=== PATIENT | female | born 1985 | race Caucasian/White ===

== ENCOUNTER 2018-10-04 13:06 | Emergency (ER) | payer MEDICAID ==
[~2018-10-04] VITALS: Ht 175.3 cm; Wt 104.3 kg
[2018-10-04 13:06] VITALS: BP_SYST 109
[2018-10-04 14:06] LABS: BASOPHILS % (AUTO) 0.2 % (0.0-2.0); HEMATOCRIT 36.3 % (36-48); HEMOGLOBIN 11.5 g/dL (12.0-16.0); MEAN CORPUSCULAR HEMOGLOBIN 23 pg (27-31); MEAN CORPUSCULAR HGB CONC 32 % (32-36); MEAN CORPUSCULAR VOLUME 71 fL (79.0-98.0); MONOCYTES # (AUTO) 0.3 K/uL (0.0-1.0); MONOCYTES % (AUTO) 2.9 % (1.7-9.3); NEUTROPHILS # (AUTO) 9.1 K/uL (1.8-7.7); NEUTROPHILS % (AUTO) 86.9 % (40.0-70.0); PLATELET COUNT (AUTO) 354 K/uL (130-430); RED BLOOD CELL COUNT(AUTO) 5.11 MIL/uL (4.2-6.2); RED CELL DISTRIBUTION WIDTH 16.1 % (9.0-15.0); WHITE BLOOD COUNT (AUTO) 10.5 K/uL (4.8-10.8)
[2018-10-04 14:19] LABS: CREATININE 0.75 mg/dL (0.55-1.30); POTASSIUM 4.3 mmol/L (3.5-5.1)
[2018-10-04 14:24] LABS: ALBUMIN 3.8 g/dL (3.4-4.8); TOTAL BILIRUBIN 0.2 mg/dL (0.0-1.0)
[2018-10-04] MEDS ORDERED: KETOROLAC TROMETHAMINE 30 MG VIAL IVP ONE (15:00)
[2018-10-04] MEDS ORDERED: ONDANSETRON HCL 4 MG/2 ML VIAL IVP ONE (15:00)
[2018-10-04] MEDS ORDERED: NACL 0.9% 1,000 ML IV ONE (15:00)
[2018-10-04 15:25] LABS: BILIRUBIN,URINE NEGATIVE (NEGATIVE); BLOOD, URINE 2+ (NEGATIVE); CLARITY/URINE HAZY (CLEAR); COLOR,URINE YELLOW (YELLOW); GLUCOSE,URINE NEGATIVE (NEGATIVE); KETONES,URINE NEGATIVE (NEGATIVE); LEUKOCYTE ESTERASE ,URINE 3+ (NEGATIVE); NITRITE, URINE NEGATIVE (NEGATIVE); PH,URINE 6.5 (5.0-8.0); PROTEIN URINE NEGATIVE (NEGATIVE); UROBILINOGEN,URINE 0.2 (0.2-1.0)
[2018-10-04 15:49] LABS: BACTERIA,URINE MODERATE /HPF (None Seen); MUCUS,URINE None Seen /LPF (None Seen); WBC,URINE 80-100 /HPF (0-3)
[2018-10-04 16:15] VITALS: BP_SYST 110
== END 2018-10-04 16:15 | disposition home or self-care (01) ==
LOC: SED 13:06
DX: K52.9 Noninfective gastroenteritis and colitis, unspecified (principal); N39.0 Urinary tract infection, site not specified
CPT/HCPCS: 36415; 74021; 80053; 81000; 81025; 83690; 85025; 87086; 96361; 96374; 96375; 99284; J1885; J2405; J7030

== ENCOUNTER 2023-01-02 08:50 | Inpatient (IN) | payer BC, MEDICAID ==
[~2023-01-02] VITALS: Ht 175.3 cm; Wt 95.7 kg
[2023-01-02 08:59] VITALS: BP_SYST 123; PULSE 88; RESP 16; TEMP 99.6; O2SAT 98
--- NOTE | 2023-01-02 09:00 | NUR ---
RECEIVED PT FROM REJI FRAGOSO. PT BIB SELF WITH C/O SORE THROAT, EAR ACHE. VSS. SIDERAILS UP X2.
--- NOTE | 2023-01-02 09:06 | NUR ---
DR. LIMON AT BEDSIDE TO ASSESS PT.
--- NOTE | 2023-01-02 09:38 | NUR ---
EDGAR 0BTAINED AND TAKEN TO LAB
--- NOTE | 2023-01-02 09:42 | NUR ---
BLOOD OBTAINED AND TAKEN TO LAB.
[2023-01-02] MEDS ORDERED: IBUP-1969 PO (11:11)
[2023-01-02] MEDS ORDERED: PSEU30TA36 PO (11:11)
[2023-01-02 11:49] LABS: BASOPHILS # (AUTO) 0.1 K/uL (0.0-0.2); BASOPHILS % (AUTO) 0.6 % (0.0-2.0); EOSINOPHILS # (AUTO) 0.1 K/uL (0.0-0.4); EOSINOPHILS % (AUTO) 1.3 % (0.0-4.0); LYMPHOCYTES # (AUTO) 1.4 K/uL (1.0-5.5); LYMPHOCYTES % (AUTO) 16.5 % (20.5-51.5); MEAN CORPUSCULAR HEMOGLOBIN 13 pg (27-31); MEAN CORPUSCULAR HGB CONC 25 % (32-36); MEAN CORPUSCULAR VOLUME 52 fL (79.0-98.0); MONOCYTES # (AUTO) 0.9 K/uL (0.0-1.0); MONOCYTES % (AUTO) 10.3 % (1.7-9.3); NEUTROPHILS % (AUTO) 71.3 % (40.0-70.0); RED BLOOD CELL COUNT(AUTO) 3.09 MIL/uL (4.2-6.2); RED CELL DISTRIBUTION WIDTH 21.3 % (9.0-15.0); WHITE BLOOD COUNT (AUTO) 8.5 K/uL (4.8-10.8)
[2023-01-02 11:52] LABS: ANION GAP 10 (5-15); CALCIUM 8.2 mg/dL (8.4-11.0); CHLORIDE 108 mmol/L (98-107); CREATININE 0.57 mg/dL (0.55-1.30); GFR AFRICAN AMERICAN 153 mL/min (>90); GLUCOSE 95 mg/dL (74-106); UREA NITROGEN, BLOOD 5 mg/dL (8-21)
[2023-01-02 11:57] LABS: ALANINE AMINOTRANSFERASE 8 U/L (12-78); ALBUMIN 3.2 g/dL (3.4-4.8); ASPARTATE AMINOTRANSFERASE 8 U/L (10-37); TOTAL BILIRUBIN 0.2 mg/dL (0.0-1.0)
[2023-01-02 12:10] LABS: HEMATOCRIT 16.2 % (36-48)
[2023-01-02 13:03] LABS: BASOPHILS % (AUTO) 0.3 % (0.0-2.0); EOSINOPHILS # (AUTO) 0.1 K/uL (0.0-0.4); EOSINOPHILS % (AUTO) 1.2 % (0.0-4.0); LYMPHOCYTES # (AUTO) 1.9 K/uL (1.0-5.5); LYMPHOCYTES % (AUTO) 23.1 % (20.5-51.5); MEAN CORPUSCULAR HEMOGLOBIN 13 pg (27-31); MEAN CORPUSCULAR HGB CONC 25 % (32-36); MEAN CORPUSCULAR VOLUME 52 fL (79.0-98.0); MONOCYTES # (AUTO) 0.8 K/uL (0.0-1.0); MONOCYTES % (AUTO) 9.6 % (1.7-9.3); NEUTROPHILS # (AUTO) 5.3 K/uL (1.8-7.7); NEUTROPHILS % (AUTO) 65.8 % (40.0-70.0); PLATELET COUNT (AUTO) 224 K/uL (130-430); RED CELL DISTRIBUTION WIDTH 21.3 % (9.0-15.0); WHITE BLOOD COUNT (AUTO) 8.1 K/uL (4.8-10.8)
[2023-01-02 13:10] LABS: HEMATOCRIT 15.5 % (36-48); HEMOGLOBIN 3.9 g/dL (12.0-16.0)
[2023-01-02 13:13] LABS: PLATELET COUNT (AUTO) 228 K/uL (130-430)
[2023-01-02 13:18] LABS: CREATININE 0.52 mg/dL (0.55-1.30)
[2023-01-02 13:22] LABS: ALBUMIN 3.1 g/dL (3.4-4.8); TOTAL BILIRUBIN 0.3 mg/dL (0.0-1.0)
--- NOTE | 2023-01-02 13:25 | NUR ---
ORDERS RECEIVED FROM DR LIZARRAGA
--- NOTE | 2023-01-02 13:25 | NUR ---
PT STATES SHE DOES NOT TAKE ANY MEDICATION AT HOME REGULARLY. TAKES IRON SOMETIMES
--- NOTE | 2023-01-02 13:27 | NUR ---
Admit bed requested Patient will be admitted to care of . Admitted to TELE unit. Diagnosis ANEMIA, VAGINAL BLEED Inpatient (Yes or No) Y Observation (Yes or No) N Orientation concerns or request close to nursing station (Yes or No) N Covid Status NEGATIVE On vent or bipap N Isolation requirements N Needs a sitter N From Home (Yes or if No enter name of facility) YES Requires Dialysis (Yes or No) N Med Rec Completed (Yes of No) Y
[2023-01-02] MEDS: NORMAL SALINE 5 ML DISP.SYRIN IVF SCH ×2 (13:51→22:36)
[2023-01-02] MEDS ORDERED: ONDANSETRON HCL 4 MG/2 ML VIAL IVP PRN (14:00)
[2023-01-02] MEDS ORDERED: HYDROcodone/ACETAMIN 5-325 MG TAB (NORCO/ VICODIN) PO PRN (14:00)
[2023-01-02] MEDS ORDERED: AZITHROMYCIN 500 MG in NS 250 ML IV SCH (14:00)
[2023-01-02] MEDS ORDERED: HYDROcodone/ACETAMIN 10-325 MG TAB PO PRN (14:00)
[2023-01-02] MEDS ORDERED: NALOXONE HCL 0.4 MG/ML AMP (NARCAN) IVP PRN ×2 (14:00)
[2023-01-02] MEDS ORDERED: ACETAMINOPHEN 325 MG TABLET PO PRN ×3 (14:00)
[2023-01-02] MEDS ORDERED: LORazepam 2 MG/ML VIAL IVP PRN (14:00)
--- NOTE | 2023-01-02 14:07 | NUR ---
REPORTED TO DR. LIZARRAGA PT HAS DRY, NONPRODUCTIVE, PERISISTENT COUGH. RECEIVED ORDER FOR PHENERGAN DM 10ML PO Q 6 PRN. ORDER CARRIED OUT.
--- NOTE | 2023-01-02 14:58 | NUR ---
PT HAS DOES NOT TAKE ANY PRESCRIBED MEDICATIONS. BELONGINGS COMPLETED.
--- NOTE | 2023-01-02 15:01 | NUR ---
Consent signed per PUSHPA EDUARDO agreeing to administration of blood. Blood has been type and crossmatched. Blood sent from blood bank. Information on unit of blood checked against patient wristband at bedside by two nurses. All information matches. Patient or responsible libertarian informed of potential complications associated with blood transfusion. Informed of possible transfusion reaction symptoms. Aware of need to notify nurse at once of itching, shortness of breath, flushing, feeling of impending doom, or other symptoms not previously present. Vital signs taken within 5 minutes prior to initiation of transfusion. RN will remain with patient for first 15 minutes of transfusion at which time vital signs will be re-assessed.
[2023-01-02] MEDS: AZITHROMYCIN 500 MG in NS 250 ML IV SCH (15:12)
[2023-01-02] MEDS ORDERED: AZITHROMYCIN 500 MG/VIAL (ZITHROMAX) IV ONE (15:13)
--- NOTE | 2023-01-02 17:04 | NUR ---
1 OF 3 UNITS OF PRBC COMPLETED. PT DENIES S/S OF TRANSFUSION RX. VSS
--- NOTE | 2023-01-02 17:38 | NUR ---
[phone] S/W MIKA EXCHANGE
[2023-01-02 17:48] VITALS: BP_SYST 118; PULSE 87; RESP 20; TEMP 97; O2SAT 100
--- NOTE | 2023-01-02 17:49 | NUR ---
Patient will be admitted to care of Jarred PURCELL Admitted to TELEMETRY unit. Will go to room 116B. Belongings list completed. Complete and up to date summary report printed. SBAR report to be given at bedside with opportunity for questions.
--- NOTE | 2023-01-02 17:50 | NUR ---
Admission Note Received patient from ER with diagnosis of ANEMIA. Initial Plan of Care discussed-patient verbalized understanding. . Oriented to room, call light, pain management and safety.vitals stable.denies any pain . ambulated to bathroom with steady gait. call light within reach. poc discussed with pt. verbalized understanding
--- NOTE | 2023-01-02 17:54 | NUR ---
CONSULTATION PAGED/CALLED Reason for Consultation: [] VAGINAL BLEED Person Who was Notified: [] LEFT A VOICE MESSAGE ON HIS CELL Consulting Physician: [] DR Les ARIAS Corn Picker Specialty: [] OBGYN Ordering Physician: [] DR LIZARRAGA
--- NOTE | 2023-01-02 18:13 | NUR ---
report given to primary RN fito. pt stable. notin acute distress.
--- NOTE | 2023-01-02 19:20 | NUR ---
Opening note Received SBAR report from REJI Moran. Patient resting in bed, eyes closed. She woke up momentarily upon greeting and she closed her eyes again. Non labored breathing on room air, skin is warm, and yennifer. IV to LAC is SL. Bed is locked in lowest position, side rails up 2x, bed alarm on and call light w/in reach.
--- NOTE | 2023-01-02 19:25 | NUR ---
OPENING NOTES Received pt in bed,alert and responsive.denies any pain or discomfort at this time. Informed pt about pending blood tranfusiontobe started soon, consent signed. IV site on the Left antecubital intact,no swelling or redness noted. Fallprecaution maintined, bed alarm on, call light within reach.
[2023-01-02 20:00] VITALS: BP_SYST 111; PULSE 74; RESP 20; TEMP 98.4; O2SAT 97
--- NOTE | 2023-01-02 20:56 | NUR ---
BT INITIATION: Consent signed per patient agreeing to administration of blood. Blood has been type and crossmatched. Blood picked up from blood bank. Information on unit of blood checked against patient wristband at bedside by two nurses. All information matches. Patient or responsible libertarian informed of potential complications associated with blood transfusion. Informed of possible transfusion reaction symptoms. Aware of need to notify nurse at once of itching, shortness of breath, flushing, feeling of impending doom, or other symptoms not previously present. Vital signs taken within 5 minutes prior to initiation of transfusion. RN will remain with patient for first 15 minutes of transfusion at which time vital signs will be re-assessed.
[2023-01-02 21:00] VITALS: BP_SYST 111; PULSE 77; RESP 18; TEMP 98.4; O2SAT 97
[2023-01-02] MEDS: PROMETHAZINE-DM 6.25 MG-15 MG/5 ML UDC PO PRN (22:35)
--- NOTE | 2023-01-02 22:35 | NUR ---
throat pain, meds Patient reporting sore throat, pain and mild occasional cough. Administered Tylenol, & Phenergan as ordered. Reviewed side effects and she verbalized understanding. Blood transfusion in progress, tolerating. raven
[2023-01-03] VITALS (7 sets, daily range): BP systolic 111–126; PULSE 18–69; RESP 16–18; TEMP 96.9–98.2; O2SAT 95–100
--- NOTE | 2023-01-03 00:03 | NUR ---
Transfusion complete Blood transf complete, patient resting in bed awake, no distress. She denies any symptoms or discomfort. VSS
--- NOTE | 2023-01-03 01:16 | NUR ---
BT INITIATION: Consent signed per patient agreeing to 2nd blood administration. Blood has been type and crossmatched. Blood sent from blood bank.Information on unit of blood checked against patient wristband at bedside by two nurses. All information matches. Patient alliance party informed of potential complications associated with blood transfusion. Informed of possible transfusion reaction symptoms.Aware of need to notify nurse at once of itching, shortness of breath, flushing, feeling of impending doom, or other symptoms not previously present. Vital signs taken within 5 minutes prior to initiation of transfusion.RN will remain with patient for first 15 minutes of transfusion at which time vital signs will be re-assessed.
--- NOTE | 2023-01-03 03:05 | NUR ---
ROUNDING NOTES Pt. resting comfortable at this time,no signs of distress noted.
[2023-01-03] MEDS: NORMAL SALINE 5 ML DISP.SYRIN IVF SCH ×3 (05:37→22:45)
[2023-01-03 06:45] LABS: BASOPHILS % (AUTO) 0.2 % (0.0-2.0); EOSINOPHILS # (AUTO) 0.1 K/uL (0.0-0.4); EOSINOPHILS % (AUTO) 1.6 % (0.0-4.0); HEMATOCRIT 22.9 % (36-48); LYMPHOCYTES # (AUTO) 2.4 K/uL (1.0-5.5); LYMPHOCYTES % (AUTO) 26.9 % (20.5-51.5); MEAN CORPUSCULAR HEMOGLOBIN 19 pg (27-31); MEAN CORPUSCULAR HGB CONC 30 % (32-36); MEAN CORPUSCULAR VOLUME 64 fL (79.0-98.0); MONOCYTES # (AUTO) 1.1 K/uL (0.0-1.0); MONOCYTES % (AUTO) 12.5 % (1.7-9.3); NEUTROPHILS # (AUTO) 5.2 K/uL (1.8-7.7); NEUTROPHILS % (AUTO) 58.8 % (40.0-70.0); PLATELET COUNT (AUTO) 187 K/uL (130-430); RED BLOOD CELL COUNT(AUTO) 3.61 MIL/uL (4.2-6.2); RED CELL DISTRIBUTION WIDTH 37.8 % (9.0-15.0); WHITE BLOOD COUNT (AUTO) 8.8 K/uL (4.8-10.8)
--- NOTE | 2023-01-03 06:52 | NUR ---
CLOSING NOTES Pt assisted to the bathroom, no acute distress noted. Side rails up for safety.Personal belongings and call light within reach
[2023-01-03 06:58] LABS: HEMOGLOBIN 6.9 g/dL (12.0-16.0)
[2023-01-03 07:14] LABS: ALBUMIN 2.9 g/dL (3.4-4.8); CALCIUM 8.4 mg/dL (8.4-11.0); CREATININE 0.56 mg/dL (0.55-1.30); TOTAL BILIRUBIN 0.5 mg/dL (0.0-1.0)
[2023-01-03 08:57] LABS: TOTAL IRON BIND. CAPACITY 286 ug/dL (250-450)
[2023-01-03] MEDS ORDERED: IRON DEXTRAN COMPLEX 25 MG in NS 50 ML TEST DOSE IV ONE (09:45)
[2023-01-03] MEDS: PROMETHAZINE-DM 6.25 MG-15 MG/5 ML UDC PO PRN (10:25)
[2023-01-03] MEDS ORDERED: GADOTERATE MEGLUMINE 7.5 MMOL/15 ML VIAL IV ONE (10:39)
[2023-01-03] MEDS ORDERED: IRON DEXTRAN COMPLEX 75 MG in NS 100 ML IV ONE (11:00)
[2023-01-03] MEDS: AZITHROMYCIN 500 MG in NS 250 ML IV SCH (15:15)
--- NOTE | 2023-01-03 20:00 | NUR ---
OPENING NOTES PATIENT IS SITTING UP IN BED AXO 4 WITH NO S/S OF DISTRESS OR DISCOMFORT. BREATHING IS EQUAL AND UNLABORED ON RA. IV INTACT. EDUCATED PATIENT ON NEEDING ONE MORE BLOOD TRANSFUSION. PATIENT VERBALLY UNDERSTOOD. COLLECT STOOL SAMPLE FROM HER AND SENT TO LAB. PATIENT IS COMPLAINING OF A SORE THROAT AND COUGH. GAVE HER PROMETHAZINE PRESCRIBED. ALL NEEDS WERE MET AT THIS TIME. SAFETY CHECKS DONE AND CALL LIGHT WITH IN REACH.
[2023-01-04 00:30] VITALS: BP_SYST 119; PULSE 61; RESP 16; TEMP 97.4; O2SAT 99
--- NOTE | 2023-01-04 01:06 | NUR ---
BLOOD TRANSFUSION FINISHED 5/5 BLOOD TRANSFUSION. VSS. PATIENT HAS NO S/S OF REACTION TO TRANSFUSION. WILL CONTINUE TO MONITOR.
--- NOTE | 2023-01-04 03:37 | NUR ---
ROUNDS PATIENT IS ASLEEP IN BED. NO S/S OF DISTRESS OR DISCOMFORT. SAFETY CHECKS DONE AND CALL LIGHT WITH IN REACH.
[2023-01-04] MEDS: PROMETHAZINE-DM 6.25 MG-15 MG/5 ML UDC PO PRN (03:39)
[2023-01-04 05:20] LABS: BASOPHILS % (AUTO) 0.2 % (0.0-2.0); EOSINOPHILS # (AUTO) 0.1 K/uL (0.0-0.4); EOSINOPHILS % (AUTO) 1.3 % (0.0-4.0); HEMATOCRIT 28.9 % (36-48); HEMOGLOBIN 8.9 g/dL (12.0-16.0); LYMPHOCYTES % (AUTO) 24.2 % (20.5-51.5); MEAN CORPUSCULAR HEMOGLOBIN 21 pg (27-31); MEAN CORPUSCULAR HGB CONC 31 % (32-36); MEAN CORPUSCULAR VOLUME 68 fL (79.0-98.0); MONOCYTES # (AUTO) 1.3 K/uL (0.0-1.0); MONOCYTES % (AUTO) 15.2 % (1.7-9.3); NEUTROPHILS % (AUTO) 59.1 % (40.0-70.0); PLATELET COUNT (AUTO) 150 K/uL (130-430); RED BLOOD CELL COUNT(AUTO) 4.26 MIL/uL (4.2-6.2); RED CELL DISTRIBUTION WIDTH 37.6 % (9.0-15.0); WHITE BLOOD COUNT (AUTO) 8.4 K/uL (4.8-10.8)
[2023-01-04 05:38] LABS: CALCIUM 7.9 mg/dL (8.4-11.0); CREATININE 0.51 mg/dL (0.55-1.30)
[2023-01-04] MEDS: NORMAL SALINE 5 ML DISP.SYRIN IVF SCH (06:15)
--- NOTE | 2023-01-04 06:26 | NUR ---
CLOSING NOTES PATIENT IS LYING IN BED AXO 4 WITH NO S/S OF DISTRESS OR DISCOMFORT. BREATHING IS EQUAL AND UNLABORED. IV INTACT. PATIENT IS STABLE. ALL NEEDS ARE MET AT THIS TIME. SAFETY CHECKS ARE DONE AND CALL LIGHT WITH IN REACH,
--- NOTE | 2023-01-04 08:30 | NUR ---
OPENING PT SITTING UP IN BED, NO C/O DISCOMFORT. CALL LIGHT WITH IN REACH, FALL PRECAUTIONS IN PLACE. PT EDUCATED ON USE OF CALL LIGHT
[2023-01-04] MEDS ORDERED: IRON DEXTRAN COMPLEX 100 MG in NS 100 ML IV SCH (09:00)
[2023-01-04 09:07] VITALS: O2SAT 100
--- NOTE | 2023-01-04 10:15 | NUR ---
CM rounded on patient at bedside. She is feeling better. Patient states that the HEMODIALYSIS RN consult told her that since there is no active bleeding seen from the endometrial mass that no surgery recommended at this time. Patient states she will go home and choose a PCP and an HEMODIALYSIS RN of her choice.
[2023-01-04] MEDS ORDERED: FERR324T11 PO (11:30)
[2023-01-04 11:56] VITALS: BP_SYST 110; PULSE 67; RESP 16; TEMP 98; O2SAT 100
[2023-01-04 12:00] VITALS: BP_SYST 116; PULSE 61; RESP 18; TEMP 97.1; O2SAT 97
--- NOTE | 2023-01-04 12:00 | NUR ---
COMFORT PT STATES SHE IS FEELING MUCH BETTER AND WANTS TO GO HOME,
[2023-01-04 12:21] VITALS: BP_SYST 110; PULSE 67; RESP 14; TEMP 98; O2SAT 100
--- NOTE | 2023-01-04 13:00 | NUR ---
DISCHARGE PT DISCHARGED HOME, GIVEN DISCHARGE INSTRUCTIONS, PT VERBALIZED UNDERSTANDING, IV REMOVED, PT WHEELED OUT IN WHEELCHAIR
[2023-01-05 01:06] LABS: FOLATE (FOLIC ACID) 9.7 ng/mL (>3.0)
== END 2023-01-04 12:50 | disposition home or self-care (01) | DRG 760 ==
LOC: SED 08:50 → STU 11:50 → SMU 01-03 19:24
PROVIDERS: ADMIT Preventive Medicine Preventive Medicine/Occupational Environmental Medicine; ATTEND Preventive Medicine Preventive Medicine/Occupational Environmental Medicine
PROC: 30233N1 Transfusion of Nonautologous Red Blood Cells into Peripheral Vein, Percutaneous Approach (ICD-10-PCS; principal; 2023-01-02)
DX: N92.0 Excessive and frequent menstruation with regular cycle (principal); E44.0 Moderate protein-calorie malnutrition; E83.51 Hypocalcemia; D25.9 Leiomyoma of uterus, unspecified; N83.202 Unspecified ovarian cyst, left side; N83.10 Corpus luteum cyst of ovary, unspecified side; D50.9 Iron deficiency anemia, unspecified; E88.09 Other disorders of plasma-protein metabolism, not elsewhere classified; Z20.822 Contact with and (suspected) exposure to COVID-19; J02.9 Acute pharyngitis, unspecified; Z68.31 Body mass index [BMI] 31.0-31.9, adult
CPT/HCPCS: 36415; 70360-TC; 71045; 72197; 76856-TC; 80048; 80053; 82272; 82550; 82607; 82728; 82746; 83540; 83550; 83880; 84484; 85025; 85044; 86304; 86308-TC; 86403; 86886; 86900; 86901; 86920; 87040; 87081; 99285; A9575; G0378; J0456; J1750; J7040; J7050; P9021

== ENCOUNTER 2023-09-05 17:35 | Inpatient (IN) | payer BC ==
[~2023-09-05] VITALS: Ht 175.3 cm; Wt 100.7 kg
[~2023-09-05 17:35] MED LIST: FERR324T11 PO; IBUP-1969 PO; PSEU30TA36 PO
[2023-09-05 17:57] VITALS: BP_SYST 112; PULSE 91; RESP 20; TEMP 98; O2SAT 98
[2023-09-05 18:54] LABS: MEAN CORPUSCULAR HEMOGLOBIN 13 pg (27-31); MEAN CORPUSCULAR HGB CONC 25 % (32-36); MEAN CORPUSCULAR VOLUME 53 fL (79.0-98.0); PLATELET COUNT (AUTO) 378 K/uL (130-430); RED BLOOD CELL COUNT(AUTO) 2.58 MIL/uL (4.2-6.2); RED CELL DISTRIBUTION WIDTH 23.4 % (9.0-15.0); WHITE BLOOD COUNT (AUTO) 4.9 K/uL (4.8-10.8)
[2023-09-05 19:06] LABS: HEMOGLOBIN 3.5 g/dL (12.0-16.0)
[2023-09-05 19:07] LABS: HEMATOCRIT 13.7 % (36-48)
[2023-09-05 19:08] LABS: CALCIUM 8.2 mg/dL (8.4-11.0); CREATININE 0.63 mg/dL (0.55-1.30); POTASSIUM 4.4 mmol/L (3.5-5.1)
[2023-09-05 19:18] LABS: ANISOCYTOSIS 2+; BAND % (MANUAL) 0 % (0-6); BASOPHILS % (MANUAL) 0 % (0-2); EOSINOPHILS % (MANUAL) 1 % (0-7); HYPOCHROMASIA 3+; LYMPHOCYTES % (MANUAL) 28 % (20-46); MONOCYTES % (MANUAL) 14 % (0-11); OVALOCYTES FEW; PLATELET ESTIMATE ADEQUATE (ADEQUATE)
[2023-09-05] MEDS: IBUPROFEN 400 MG TABLET PO PRN (20:10)
[2023-09-05 20:29] LABS: HCG,QUAL RESULT NEGATIVE (NEGATIVE)
[2023-09-05] MEDS ORDERED: ACETAMINOPHEN 500 MG TABLET PO PRN ×3 (20:30)
[2023-09-05] MEDS ORDERED: MUPIROCIN 2% TOPICAL OINTMENT 22 GM NS PRN (20:30)
[2023-09-05] MEDS ORDERED: MAGNESIUM SULFATE 50 ML IV PRN (20:30)
[2023-09-05] MEDS ORDERED: LORazepam 2 MG/ML VIAL IVP PRN (20:30)
[2023-09-05] MEDS ORDERED: POTASSIUM CHLORIDE 20 MEQ TABLET.ER PO PRN (20:30)
[2023-09-05] MEDS ORDERED: ZOLPIDEM TARTRATE 5 MG TABLET PO PRN (20:30)
[2023-09-05] MEDS ORDERED: ONDANSETRON HCL 4 MG/2 ML VIAL IVP PRN (20:30)
[2023-09-05] MEDS ORDERED: MORPHINE 2 MG/ML INJ. SYRINGE IVP PRN ×2 (20:30)
[2023-09-05] MEDS ORDERED: DOCUSATE SODIUM 100 MG CAPSULE PO PRN (20:30)
[2023-09-05 20:51] LABS: TOTAL IRON BIND. CAPACITY 324 ug/dL (250-450)
[2023-09-05 21:04] LABS: THYROID STIMULATING HORMONE 2.42 uIu/mL (0.34-4.82)
[2023-09-05] MEDS: ACETAMINOPHEN 650 MG/20.3 ML UDC GT ONE (21:08)
[2023-09-05] MEDS: FERROUS GLUCONATE 324 MG TABLET PO SCH (22:00)
[2023-09-06 04:08] LABS: BASOPHILS % (AUTO) 0.4 % (0.0-2.0); EOSINOPHILS # (AUTO) 0.1 K/uL (0.0-0.4); EOSINOPHILS % (AUTO) 2.3 % (0.0-4.0); LYMPHOCYTES # (AUTO) 1.9 K/uL (1.0-5.5); LYMPHOCYTES % (AUTO) 36.6 % (20.5-51.5); MEAN CORPUSCULAR HEMOGLOBIN 18 pg (27-31); MEAN CORPUSCULAR HGB CONC 30 % (32-36); MEAN CORPUSCULAR VOLUME 61 fL (79.0-98.0); MONOCYTES # (AUTO) 0.8 K/uL (0.0-1.0); MONOCYTES % (AUTO) 14.7 % (1.7-9.3); NEUTROPHILS # (AUTO) 2.4 K/uL (1.8-7.7); PLATELET COUNT (AUTO) 365 K/uL (130-430); RED CELL DISTRIBUTION WIDTH 32.5 % (9.0-15.0); WHITE BLOOD COUNT (AUTO) 5.3 K/uL (4.8-10.8)
[2023-09-06 04:41] LABS: CREATININE 0.58 mg/dL (0.55-1.30); POTASSIUM 4.2 mmol/L (3.5-5.1)
[2023-09-06 04:59] LABS: HEMATOCRIT 17.6 % (36-48); HEMOGLOBIN 5.2 g/dL (12.0-16.0)
[2023-09-06 07:15] VITALS: BP_SYST 89; PULSE 66; RESP 18; TEMP 97.9; O2SAT 100
[2023-09-06] MEDS ORDERED: FERR324T11 PO (11:53)
[2023-09-06 11:55] VITALS: BP_SYST 106; PULSE 71; RESP 16; TEMP 98.4; O2SAT 95
[2023-09-06 12:10] VITALS: BP_SYST 101; PULSE 68; RESP 18; TEMP 98.3; O2SAT 94
[2023-09-06] MEDS: IBUPROFEN 600 MG TABLET PO PRN (15:59)
[2023-09-06 16:00] VITALS: BP_SYST 113; PULSE 67; RESP 16; TEMP 97.8; O2SAT 98
[2023-09-06] MEDS ORDERED: HYDROcodone/ACETAMIN 5-325 MG TAB (NORCO/ VICODIN) PO PRN (19:30)
[2023-09-06 20:00] VITALS: BP_SYST 101; PULSE 66; RESP 20; TEMP 98.1; O2SAT 100
[2023-09-07 00:47] VITALS: BP_SYST 101; PULSE 67; RESP 20; TEMP 98.1
[2023-09-07 02:11] LABS: BASOPHILS % (AUTO) 0.5 % (0.0-2.0); EOSINOPHILS # (AUTO) 0.1 K/uL (0.0-0.4); EOSINOPHILS % (AUTO) 1.7 % (0.0-4.0); HEMATOCRIT 24.9 % (36-48); HEMOGLOBIN 7.5 g/dL (12.0-16.0); LYMPHOCYTES # (AUTO) 2.3 K/uL (1.0-5.5); LYMPHOCYTES % (AUTO) 38.4 % (20.5-51.5); MEAN CORPUSCULAR HEMOGLOBIN 20 pg (27-31); MEAN CORPUSCULAR HGB CONC 30 % (32-36); MEAN CORPUSCULAR VOLUME 65 fL (79.0-98.0); MONOCYTES # (AUTO) 0.7 K/uL (0.0-1.0); MONOCYTES % (AUTO) 12.7 % (1.7-9.3); NEUTROPHILS # (AUTO) 2.7 K/uL (1.8-7.7); NEUTROPHILS % (AUTO) 46.7 % (40.0-70.0); PLATELET COUNT (AUTO) 352 K/uL (130-430); RED BLOOD CELL COUNT(AUTO) 3.82 MIL/uL (4.2-6.2); RED CELL DISTRIBUTION WIDTH 34.7 % (9.0-15.0); WHITE BLOOD COUNT (AUTO) 5.9 K/uL (4.8-10.8)
[2023-09-07 07:45] VITALS: BP_SYST 109; PULSE 66; RESP 16; TEMP 98.9; O2SAT 100
[2023-09-07 08:00] VITALS: O2SAT 100; O2SAT 97
[2023-09-07 08:27] VITALS: BP_SYST 109; PULSE 66; RESP 16; TEMP 98.9; O2SAT 100
== END 2023-09-07 09:00 | disposition home or self-care (01) | DRG 761 ==
LOC: SED 17:35 → SMU 19:52
PROVIDERS: ADMIT General Practice; ATTEND General Practice
PROC: 30233N1 Transfusion of Nonautologous Red Blood Cells into Peripheral Vein, Percutaneous Approach (ICD-10-PCS; principal; 2023-09-05)
DX: N92.0 Excessive and frequent menstruation with regular cycle (principal); I10 Essential (primary) hypertension; E11.9 Type 2 diabetes mellitus without complications; D50.9 Iron deficiency anemia, unspecified; K13.5 Oral submucous fibrosis; N83.202 Unspecified ovarian cyst, left side; Z88.0 Allergy status to penicillin
CPT/HCPCS: 36415; 76817; 80048; 83037; 83540; 83550; 83735; 84443; 84703; 85007; 85025; 85027; 86886; 86900; 86901; 86920; 99291; P9021